=== PATIENT | female | born 1990 | race Caucasian/White ===

== ENCOUNTER → 2018-09-23 00:22 | Observation (INO) ==
[2018-09-22 23:59] LABS: Amphetamine Screen,Urine Negative ng/mL (Cutoff=1000); Barbiturate Screen,Urine Negative ng/mL (Cutoff=200); Benzodiazepines Screen,Urine Negative ng/mL (Cutoff=200); Cannabinoid Screen,Urine Negative ng/mL (Cutoff = 50); Cocaine Screen,Urine Negative ng/mL (Cutoff= 300); Opiate Screen,Urine Negative ng/mL (Cutoff=300); Phencyclidine Screen,Urine Negative ng/mL (Cutoff=25)
--- NOTE | 2018-09-23 00:16 | Discharge Summary ---
Date of Encounter: 09/23/18 Time of Encounter: 00:05 - Discharge Diagnosis (1) 32 weeks gestation of Priority: Primary Status: Acute Comments: Admit to observation for complaints of vaginal discharge and abdominal pain (2) Abdominal pain Priority: Secondary Status: Acute Comments: Patient complains of epigastric pain for the past several months. BP 125/78, no other s/s concerning for pre-e Patient has an appointment for routine care in 2 days Qualifiers: Abdominal location: epigastric Qualified Code(s): R10.13 - Epigastric pain (3) NST (non-stress test) reactive Priority: Secondary Status: Acute Comments: FHR 135 bpm, moderate variability, +15x15 accels, no decels. (4) Vaginal discharge during in third trimester Priority: Secondary Status: Acute Comments: Complaints of feeling moist multiple times throughout the day. Vaginosis panel negative Perineum dry upon inpsection - Discharge Medications Prescriptions: No Action Aspirin 81 mg PO DAILY Formula Tablet 1 tab PO DAILY Home Medications: Aspirin 81 mg PO DAILY 09/22/18 [History] Formula Tablet 1 tab PO DAILY 09/22/18 [History] Allergies/Adverse Reactions: Allergy/AdvReac Type Severity Reaction Status Date / Time hydromorphone [From Dilaudid] Allergy Hives Verified 09/22/18 23:28 sulfamethoxazole Allergy Nausea Verified 09/22/18 23:28 [From Bactrim] trimethoprim [From Bactrim] Allergy Nausea Verified 09/22/18 23:28 Data Procedures and tests throughout hospitalization: Laboratory Tests 09/22/18 23:30 Urine Opiates Screen Negative Ur Barbiturates Screen Negative Ur Phencyclidine Scrn Negative Ur Amphetamines Screen Negative U Benzodiazepines Scrn Negative Urine Cocaine Screen Negative U Marijuana (THC) Screen Negative Ur Drug Screen Interp See Below Labs on day of discharge: Labs from last 24 hours 09/22/18 23:30 Urine Opiates Screen Negative Ur Barbiturates Screen Negative Ur Phencyclidine Scrn Negative Ur Amphetamines Screen Negative U Benzodiazepines Scrn Negative Urine Cocaine Screen Negative U Marijuana (THC) Screen Negative Ur Drug Screen Interp See Below Date of admission: 09/22/18 23:11 Discharging clinician: Whitney Prabhakar Anticipated date of discharge: 09/23/18 - Patient Status Disposition: Home, Self-Care Condition: Good Functional capacity at discharge: independent ambulation Overall status at discharge: patient is progressing back to baseline - Discharge Instructions - Diet and Activity Activity: resume usual activities as tolerated Diet: regular diet Hospital Course MILL WORK Hospital course: Patient arrived with multiple complaints, overall not feeling herself. She reports epigastric pain that is tender to touch but has been present for several months. Patient does report a history of Pre-E with previous and had been online looking at symptoms and became concerned. Her blood pressure was 125/78 with no other s/s concerning for pre-e at this time. She also reports some vaginal discharge she is concerned with since she is needing to change her pad for. Vaginosis panel returned negative and perineum is dry upon visual inspection. Fetus with a reactive tracing. Patient reports good movement and denies bleeding and contractions. No uterine activity noted on monitor. Patient is to follow up for routine care in 2 days as scheduled. Instructed to call or come back for any further concerns. Time Attestation: Total time spent providing and/or coordinating discharge services: Time Spent: Less than 30 minutes Exam - Constitutional General appearance IM: A&O X 3, pleasant, no acute distress, answers questions appropriately - Respiratory Respiratory exam: Present: CTAB - Cardiovascular Cardiovascular exam IM: Present: RRR, +S1, +S2 - GI/Abdominal GI/Abdominal exam IM: normal bowel sounds, soft - Rectal Rectal exam: deferred - External exam: normal external exam - Extremities Exam Extremities exam IM: Present: full ROM, normal capillary refill, normal inspection - Neurological Exam Neurological exam: alert, normal gait, oriented X3 - VTE Reasons for not Prescribing Prophylaxis: Treatment not Indicated - Low risk for VTE
[2018-09-23 01:47] LABS: Candida DNA Not Detected (Not Detect); Gardnerella DNA Not Detected (Not Detect); Trichomonas DNA Not Detected (Not Detect)
== END | disposition home or self-care (01) ==
LOC: 1NENULAB
PROVIDERS: ADMIT Registered Nurse; ATTEND Registered Nurse

== ENCOUNTER 2018-11-08 08:00 | Inpatient (IN) ==
[2018-11-08] MEDS ORDERED: Ondansetron 4 MG/2 ML VIAL IVP PRN (09:08)
[2018-11-08] MEDS ORDERED: Naloxone 0.4 MG/ML INJ IVP PRN (09:08)
[2018-11-08] MEDS ORDERED: Metoclopramide 10 MG/2 ML VIAL IVP PRN (09:08)
[2018-11-08] MEDS ORDERED: *HR* Nalbuphine 10 MG/ML AMPUL IVP PRN (09:08)
[2018-11-08] MEDS ORDERED: Famotidine 20 MG/2 ML VIAL IVP PRN (09:08)
[2018-11-08] MEDS ORDERED: Oxytocin 20 units/ LR 1000 mL 20 UNIT/1,000 ML BAG IVC SCH ×2 (09:45→23:36)
[2018-11-08] MEDS: Ringers Solution, Lactated 1,000 ML IVC SCH ×3 (10:14→18:04)
[2018-11-08 10:20] LABS: Basophils % 0.3 %; Eosinophils # 0.1 K/mcL (0.0-0.6); Eosinophils % 0.9 %; Hematocrit 36.1 % (35.3-44.9); Hemoglobin 11.9 g/dL (11.5-15.4); Immature Granulocytes % 1.1 % (0-4); Lymphocytes # 2.2 K/mcL (0.6-4.6); Lymphocytes % 23.4 %; Mean Corpuscular Hemoglobin 27.3 pg (28.0-33.3); Mean Corpuscular Volume 82.8 fL (83.0-100.0); Mean Platelet Volume 10.9 fL (9.4-12.4); Monocytes # 0.9 K/mcL (0.0-1.3); Monocytes % 10.1 %; Platelet Count 222 K/mcL (140-400); Red Blood Count 4.36 M/mcL (3.82-4.97); Red Cell Distribution Width 13.5 % (11.5-14.5); Segmented Neutrophils % 64.2 %; White Blood Count 9.3 K/mcL (4.3-11.1)
[2018-11-08 10:26] LABS: Amphetamine Screen,Urine Negative ng/mL (Cutoff=1000); Barbiturate Screen,Urine Negative ng/mL (Cutoff=200); Benzodiazepines Screen,Urine Negative ng/mL (Cutoff=200); Cannabinoid Screen,Urine Negative ng/mL (Cutoff = 50); Cocaine Screen,Urine Negative ng/mL (Cutoff= 300); Opiate Screen,Urine Negative ng/mL (Cutoff=300); Phencyclidine Screen,Urine Negative ng/mL (Cutoff=25)
--- NOTE | 2018-11-08 11:18 | Anesthesia Evaluation PreOp ---
Date of Encounter: 11/08/18 Time of Encounter: 11:16 - Past History Planned Operation: NITA Cardiac History: Denies any Significant Hx Pulmonary History: Denies Any Significant HX APPRAISAL COORDINATOR History: Denies Any Significant HX Other Medical History: GERD, Other (IBS) Anesthesia History: No Prior Anesthetic Complications, Past Anesthesia (tonsil, NITA, C-scope) : Yes Test: Positive Alcohol Use: none Drug use: none Medications and Allergies Aspirin 81 mg PO DAILY 09/22/18 [History] Formula Tablet 1 tab PO DAILY 09/22/18 [History] Allergy/AdvReac Type Severity Reaction Status Date / Time hydromorphone [From Dilaudid] Allergy Hives Verified 09/22/18 23:28 sulfamethoxazole Allergy Chest Pain Verified 11/08/18 08:50 [From Bactrim] trimethoprim [From Bactrim] Allergy Nausea Verified 09/22/18 23:28 - Meds/Allergy Pre-op Review Medications Reviewed: Yes Allergies Reviewed: Yes Beta Blockers on Current Med List: No Anesthesia Results - Labs 11/08/18 09:55 Anesthesia Exam 128/82 74 16 fht 138 Height: 5'8" Weight: 106 k NPO (# of Hours): 4 Pain Scale: 2 Pain Scale Used: Numeric (1 - 10) - HEENT Pupil (Motor): Pupils equal Mallampati: II Teeth: Normal Oral Opening: Greater than 3 - APPRAISAL COORDINATOR LOC: Oriented APPRAISAL COORDINATOR Motor: Normal RUE, Normal LUE, Normal RLE, Normal LLE, Normal Face APPRAISAL COORDINATOR Sensory: Normal: RUE, LUE, RLE, LLE, Face - Cardiac Rhythm: Regular Murmur: None - Pulmonary Breath Sounds: bilateral Clear Respiratory Effort: Symmetrical Anesthesia Assess/Plan ASA Score: 2 Level of consciousness: Cooperative Anesthetic Plan: Epidural (risks discussed, questions answered, consented) Autologous Blood: No Monitoring Plan: Standard Monitors Recovery Plan: Other
[2018-11-08] MEDS ORDERED: *HR* FentaNYL (PF) 100 MCG/2 ML VIAL EP ONE (11:19)
[2018-11-08] MEDS ORDERED: *HR* Ropivacaine/PF 0.2% 20 ML VIAL EP ONE (11:19)
[2018-11-08] MEDS ORDERED: *HR* FentaNYL (PF) 100 MCG/2 ML VIAL ONE (11:23)
[2018-11-08] MEDS ORDERED: *HR* Ropivacaine/PF 0.2% 20 ML VIAL ONE (11:23)
[2018-11-08] MEDS ORDERED: Epidural Premix (fent/bupiv) 110 ML EP SCH (11:30)
--- NOTE | 2018-11-08 12:26 | OB/GYN History & Physical ---
Date of Encounter: 11/08/18 Time of Encounter: 12:23 Assessment and Plan (1) 39 weeks gestation of Current visit: Yes Status: Acute (2) Elective induction of labor planned Current visit: Yes Status: Acute Pitocin induction has already begun. EFM with anticipation of a vaginal delivery. History of Present Illness Chief complaint: Induction of labor HPI: Ms. Grewal is a 28 year old female G 2 P 1-0-0-1 at 39 2/7 weeks admitted to labor and delivery for induction of labor at term with a favorable cervix. She reports good movement. She denies any labor symptoms. She has a history of pre-eclampsia with her first . She has been taking a baby ASA daily since 12 weeks and doing well. Past Med Surg Social Fam HX - Past Medical History Source: patient Medical history: no medical history Additional medical history: hx Asthma as a child Psychiatric history: no psych history - Past Surgical History Surgical History: non-contributory, other Additional surgical history: T&A. Colonoscopy as 19 y.o. hx of Basal Cell Carcinoma. Several moles removed from right upper arm, and back - Social History Smoking Status: Never smoker Smokeless Tobacco Status: No Alcohol use: none Drug use: none - Family History Mother Adopted: No Living Status: Still Living Hx Family Cardiac Disorders: Yes (HTN, High Cholesterol) Hx Family Respiratory Disorders: No Hx Family Cancer: No Hx Family GI Disorders: No Hx Family Endocrine Disorder: No Hx Family Neuromuscular Disorders: Yes (RHEMATOID ARTHRITIS) Hx Family Neurologic Disorders: No Hx Family HEENT Disorders: No Hx Family Autoimmune Disorders: No Obstetrical History - Pregnancies : 2 Para: 1 Term: 1 : 0 Ab's: 0 Livin - History/Complications History/Complications: pre-eclampsia with her first Medications and Allergies Aspirin 81 mg PO DAILY 09/22/18 [History] Formula Tablet 1 tab PO DAILY 09/22/18 [History] Allergy/AdvReac Type Severity Reaction Status Date / Time hydromorphone [From Dilaudid] Allergy Hives Verified 09/22/18 23:28 sulfamethoxazole Allergy Chest Pain Verified 11/08/18 08:50 [From Bactrim] trimethoprim [From Bactrim] Allergy Nausea Verified 09/22/18 23:28 Review of System OB All systems PM: reviewed and no additional remarkable complaints except as stated Exam - Constitutional Constitutional: well developed, well nourished, no acute distress, average body habitus - HEENT HEENT: EOMI, Normocephaly, Mucus Membranes Moist - Lungs Respiratory exam: CTAB - Cardiovascular Cardiovascular exam: RRR - Abdomen Abdomen: Present: bowel sounds normal, gravid, non tender - Extremities Extremities exam: normal inspection - Vulva Vulva: bilateral: normal - Vagina Vagina: Present: normal moisture - Cervix Dilation: 4 Effacement: 80 (cephalic) Station: -3 - Anus/Rectum Anus/Rectum: Present: normal perianal skin Results Result Diagrams: 11/08/18 09:55 Abnormal lab results MCV 82.8 fL (83.0-100.0) L 11/08/18 09:55 MCH 27.3 pg (28.0-33.3) L 11/08/18 09:55 All other labs normal. US - abdomen: report reviewed - VTE Reasons for not Prescribing Prophylaxis: Treatment not Indicated - Low risk for VTE
--- NOTE | 2018-11-08 13:07 | Anesthesia Procedures ---
Date of Encounter: 11/08/18 Time of Encounter: 13:05 Procedures: Anesthesia - Epidural/Spinal Patient ID/Chart reviewed: Yes Patient examined: Yes OB Eval: Gestational age: 39.2 OB Eval: : 2 OB Eval: Hx Para: 1 OB Eval: Dilated at (cm): 4 OB Eval: Contractions: Non-stressed pattern Consent Obtained: Yes Supplemental Oxygen: None/Room Air Site Prep: Aseptic Technique, Sterile prep and drape, 0.5% Chlorhexidine/Alcohol Patient position: upright Local Anesthetic: Lidocaine 1% Amount of Local Anesthetic used: 5 Touhy Needle Gauge: 18 Touhy Needle Depth (cm): 8 Catheter Depth at Skin (cm): 15 Test Dose (1.5% Lido + Epi): Volume given (mls): 3 Test Dose Result: Negative Loading Dose: Fentanyl (mcg): 100 Loading Dose: Other: rop 0.2% 5cc Loading Dose Administered: Thru Touhy Needle Infusion Med: 0.125% Bupivacaine w/ 2 mcg/ml Fentanyl Infusion Rate (mls/hr): 15 (pcea 5 cc q30") Catheter Secured in Place: Tegaderm Interspace Used: L3-L4 Loss of Resistance (CHITO): Yes Blood: No CSF: No Paresthesia: No Procedure: aseptic janina well effective Vitals + FHT's: 132/82 88 16 fht 136
--- NOTE | 2018-11-08 16:22 | OB Labor Progress Note ---
Date of Encounter: 11/08/18 Time of Encounter: 16:20 Labor Progress Note - Subjective Subjective: Patient resting comfortably in bed. Epidural in place. - Vital Signs Vital Signs: VSS - Cervix Cervix: 6-7/80/-1 - Heart Tones Heart Tones: FHTs 150 moderate variability with 15 x 15 accels and occasional variable decels - [place]: Contractions not picking up on toco; contractions palpate every 3 to 4 minutes and are moderate to strong in strength - Interventions Interventions: IUPC placed without difficulty - Plan Physician notified: No Plan: GBS negative Continue routine labor management Pitocin currently infusing at 12 mu/min; titrate for adequate contractions Anticipate vaginal delivery POC per consult with Dr Qiu.
[2018-11-08] MEDS ORDERED: Acetaminophen 325 MG TABLET PO PRN ×2 (17:53→23:36)
--- NOTE | 2018-11-08 20:10 | OB/GYN Procedure Note ---
Delivery - Delivery Date: 11/08/18 Provider: Sunitha Qiu Intrapartum events: none Delivery induction: AROM, oxytocin Delivery monitor: external FHT, external uterine, internal uterine Anesthesia: epidural Quantitated Blood Loss: 300 - Infant (s) A Infant Delivery Date: 11/08/18 Delivery Time: 19:43 Presentation: vertex Position: BOBBI Route of delivery: Gender: Male Viability: Viable at 1 minute: 8 at 5 mins: 9 Shoulder Dystocia: not encountered Specimens collected: cord blood Placenta: spontaneous Cord: nuchal cord, 3 umbilical vessels, nuchal reduced - Repair Episiotomy: none Laceration Description: Perineal - 2nd Degree - Complications Delivery complications: none Delivery comments: Called to room with patient complete and +2 station. Under maternal effort she delivered a viable male with Apgars 8 and 9 at one and 5 minutes respectively her second-degree perineal laceration. Following delivery of the head there was a loose nuchal cord noted and reduced without difficulty. The shoulders delivered with maternal effort and no dystocia was encountered. Following delivery the infant was placed on mom's abdomen. Cord was allowed to cease pulsations and was double clamped and cut with assistance from the father. Placenta delivered spontaneously, complete, and intact with a three-vessel cord. The second-degree perineal laceration was repaired using 3-0 Vicryl in standard fashion. There were no labial, vaginal, or cervical lacerations on exam. Mother and recovering in the LDR in stable condition with weight pending at the time of dictation. - Disposition Mom disposition: stable in LDR [place] disposition: stable in LDR
[2018-11-08] MEDS ORDERED: Oxytocin 20 units/ LR 1000 mL 20 UNIT/1,000 ML BAG IVC ONE (23:36)
[2018-11-08] MEDS ORDERED: Ibuprofen 600 MG TABLET PO PRN (23:36)
[2018-11-08] MEDS ORDERED: Measles/Mumps/Rubella Vacc 0.5 ML VIAL SQ PRN (23:36)
[2018-11-09] MEDS ORDERED: Prenatal Vit/FA 1 EACH TABLET PO SCH (09:00)
--- NOTE | 2018-11-09 09:45 | Discharge Summary ---
Date of Encounter: 11/09/18 Time of Encounter: 09:43 - Discharge Diagnosis (1) () Priority: Secondary Status: Acute (2) Vaginal delivery Priority: Primary Status: Acute Comments: Pt feeling well this am. She desires discharge home this evening. - Discharge Medications Prescriptions: New Ibuprofen [Motrin] 600 mg PO Q6HR PRN #30 tablet PRN Reason: Cramping Docusate [Colace] 100 mg PO BID #30 capsule Continued Formula Tablet 1 tab PO DAILY Discontinued Aspirin 81 mg PO DAILY Home Medications: Formula Tablet 1 tab PO DAILY 09/22/18 [History] Breast Pump [BREAST PUMP] 1 each .ROUTE AD #1 each 11/09/18 [Rx] Docusate [Colace] 100 mg PO BID #30 capsule 11/09/18 [Rx] Ibuprofen [Motrin] 600 mg PO Q6HR PRN #30 tablet 11/09/18 [Rx] Allergies/Adverse Reactions: Allergy/AdvReac Type Severity Reaction Status Date / Time hydromorphone [From Dilaudid] Allergy Hives Verified 09/22/18 23:28 sulfamethoxazole Allergy Chest Pain Verified 11/08/18 08:50 [From Bactrim] trimethoprim [From Bactrim] Allergy Nausea Verified 09/22/18 23:28 Data Procedures and tests throughout hospitalization: Laboratory Tests 11/08/18 11/08/18 09:55 09:55 WBC 9.3 RBC 4.36 Hgb 11.9 Hct 36.1 MCV 82.8 L MCH 27.3 L MCHC 33.0 RDW 13.5 Plt Count 222 MPV 10.9 Immature Gran % 1.1 Seg Neutrophils % 64.2 Lymphocytes % 23.4 Monocytes % 10.1 Eosinophils % 0.9 Basophils % 0.3 Neutrophils # 6.0 Lymphocytes # 2.2 Monocytes # 0.9 Eosinophils # 0.1 Basophils # 0.0 Urine Opiates Screen Negative Ur Barbiturates Screen Negative Ur Phencyclidine Scrn Negative Ur Amphetamines Screen Negative U Benzodiazepines Scrn Negative Urine Cocaine Screen Negative U Marijuana (THC) Screen Negative Ur Drug Screen Interp See Below Labs on day of discharge: Labs from last 24 hours 11/08/18 11/08/18 09:55 09:55 WBC 9.3 RBC 4.36 Hgb 11.9 Hct 36.1 MCV 82.8 L MCH 27.3 L MCHC 33.0 RDW 13.5 Plt Count 222 MPV 10.9 Immature Gran % 1.1 Seg Neutrophils % 64.2 Lymphocytes % 23.4 Monocytes % 10.1 Eosinophils % 0.9 Basophils % 0.3 Neutrophils # 6.0 Lymphocytes # 2.2 Monocytes # 0.9 Eosinophils # 0.1 Basophils # 0.0 Urine Opiates Screen Negative Ur Barbiturates Screen Negative Ur Phencyclidine Scrn Negative Ur Amphetamines Screen Negative U Benzodiazepines Scrn Negative Urine Cocaine Screen Negative U Marijuana (THC) Screen Negative Ur Drug Screen Interp See Below Date of admission: 11/08/18 08:15 Consults: 11/08/18 23:36 Consult to Systems Planner [CONS] Routine Comment: Vaginal delivery, consult needed Discharging clinician: Carissa Wu Anticipated date of discharge: 11/09/18 - Patient Status Disposition: Home, Self-Care Condition: Good Functional capacity at discharge: independent ambulation Overall status at discharge: patient is progressing back to baseline - Discharge Instructions Follow Up With: Sunitha Qiu, [Partnered Physician] - - Diet and Activity Activity: increase activity as tolerated Diet: regular diet Hospital Course Reason for admission: induction of labor Delivery: Episiotomy: none Laceration: 2nd degree Other procedures: none complications: none Discharge diagnosis: IUP at term delivered [place] baby: male Hospital course: - Delivery Date: 11/08/18 Provider: Sunitha Qiu Intrapartum events: none Delivery induction: AROM, oxytocin Delivery monitor: external FHT, external uterine, internal uterine Anesthesia: epidural Quantitated Blood Loss: 300 - Infant (s) A Infant Delivery Date: 11/08/18 Delivery Time: 19:43 Presentation: vertex Position: BOBBI Route of delivery: Gender: Male Viability: Viable at 1 minute: 8 at 5 mins: 9 Shoulder Dystocia: not encountered Specimens collected: cord blood Placenta: spontaneous Cord: nuchal cord, 3 umbilical vessels, nuchal reduced - Repair Episiotomy: none Laceration Description: Perineal - 2nd Degree - Complications Delivery complications: none - Disposition Mom disposition: home PPD1 disposition: home with mother, Time Attestation: Total time spent providing and/or coordinating discharge services: Time Spent: Less than 30 minutes Exam - Constitutional Vitals: Temp Pulse Resp BP Pulse Ox 97.6 F 97 16 115/78 99 11/09/18 09:10 11/09/18 09:10 11/09/18 09:10 11/09/18 09:10 11/09/18 09:10 General appearance IM: A&O X 3, no acute distress - Respiratory Respiratory exam: Present: CTAB. Absent: respiratory distress - Cardiovascular Cardiovascular exam IM: Present: RRR, +S1, +S2. Absent: irregular rhythm - GI/Abdominal GI/Abdominal exam IM: normal bowel sounds, soft - External exam: normal external exam, swelling (mildly swollen) Uterine Tone: Firm Uterus Position: 2 Fingers Below Umbilicus - Extremities Exam Extremities exam IM: Present: normal inspection. Absent: calf tenderness, pedal edema - Neurological Exam Neurological exam: normal gait, oriented X3 - Psychiatric Additional comments: reports good mood
[2018-11-09 17:18] VITALS: BP 122/71
[2018-11-09] MEDS ORDERED: Benzocaine/Menthol 56 GM AEROSOL SPRAY TP ONE (20:08)
== END 2018-11-09 21:36 | disposition home or self-care (01) | DRG 807 ==
LOC: 1NENULAB 08:15 → 1NENUOBS 22:46
PROVIDERS: ADMIT Obstetrics & Gynecology; ATTEND Obstetrics & Gynecology